=== PATIENT | female | born 1980 | race African-American/Black ===

== ENCOUNTER 2016-10-01 09:21 | Emergency (ER) | payer MEDICAID ==
--- NOTE | 2016-10-01 09:57 | ER Document Report ---
ED ENT - General Chief Complaint: Sore Throat Stated Complaint: SORE THROAT Time seen by provider: 09:50 Mode of Arrival: Ambulatory Information source: Patient Notes: Physical stay home 36-year-old female presents to ED for sore throat, runny nose , and cough since Sunday denies fever . Patient in no acute distress in the ER when examined. She denies any nausea vomiting or diarrhea. She states she has frequent strep throat. 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 TRAVEL OUTSIDE OF THE [place] IN LAST 30 DAYS: No - HPI Onset/Duration: Gradual Quality of pain: Sharp Severity: Moderate Pain Level: 3 Context: Recent Illness Location of pain: Nose, Sinus, Throat Associated symptoms: Cough, Nose bleed, Sinus drainage, Sore throat. denies: Fever Similar symptoms previously: Yes Recently seen / treated by doctor: No - Related Data Allergies/Adverse Reactions: No Known Allergies Allergy (Verified 10/01/16 09:33) Past Medical History - General Information source: Patient - Social History Smoking Status: Current Every Day Smoker Cigarette use (# per day): Yes Chew tobacco use (# tins/day): No - half pack Smoking Education Provided: Yes Frequency of alcohol use: Occasional Drug Abuse: None Occupation: cashiers supervisor Lives with: Family - 3 children Family History: DM, Hypertension Patient has suicidal ideation: No Patient has homicidal ideation: No - Past Medical History Cardiac Medical History: Reports: None Pulmonary Medical History: Reports: None EENT Medical History: Reports: None, Throat - Strep Neurological Medical History: Reports: None Endocrine Medical History: Reports: None Renal/ Medical History: Reports: Hx Kidney Stones - Dx'ed with x-ray, Hx Ovarian Cysts - Right oopherectomy 2009 Malignancy Medical History: Reports: None GI Medical History: Reports: Hx Gastroesophageal Reflux Disease - during only Musculoskeltal Medical History: Reports Hx Musculoskeletal Trauma Psychiatric Medical History: Reports: Hx Depression - no meds Traumatic Medical History: Reports: Hx Fractures - finger as child Infectious Medical History: Reports: None Past Surgical History: Reports: Hx Section - 2001, Hx Gynecologic Surgery - ovary removed - Immunizations Immunizations up to date: Yes Hx Diphtheria, Pertussis, Tetanus Vaccination: Yes - 08/2013 Review of Systems - Review of Systems Constitutional: Recent illness. denies: Fever EENT: Nose discharge, Sinus discharge, Throat pain Cardiovascular: No symptoms reported Respiratory: Cough Gastrointestinal: No symptoms reported Genitourinary: No symptoms reported Female Genitourinary: No symptoms reported Musculoskeletal: No symptoms reported Skin: No symptoms reported Hematologic/Lymphatic: No symptoms reported Neurological/Psychological: No symptoms reported -: Yes All other systems reviewed and negative Physical Exam - Vital signs Vitals: Temp Pulse Resp BP Pulse Ox 98.4 F 84 16 118/71 99 10/01/16 09:30 10/01/16 09:30 10/01/16 09:30 10/01/16 09:30 10/01/16 09:30 Interpretation: Normal - General General appearance: Appears well, Alert - HEENT Head: Normocephalic, Atraumatic Eyes: Normal Pupils: PERRL Ears: Normal External canal: Normal Tympanic membrane: Normal Sinus: Normal Nasal: Purulent discharge, Swelling Mouth/Lips: Normal Mucous membranes: Normal Pharynx: Post nasal drainage Neck: Normal - Respiratory Respiratory status: No respiratory distress Chest status: Nontender Breath sounds: Nonproductive cough Chest palpation: Normal - Cardiovascular Rhythm: Regular Heart sounds: Normal auscultation Murmur: No - Abdominal Inspection: Normal Distension: No distension Bowel sounds: Normal Tenderness: Nontender Organomegaly: No organomegaly - Back Back: Normal, Nontender - Extremities General upper extremity: Normal inspection, Nontender, Normal color, Normal ROM , Normal temperature General lower extremity: Normal inspection, Nontender, Normal color, Normal ROM , Normal temperature, Normal weight bearing. No: Rory's sign - Neurological Neuro grossly intact: Yes Cognition: Normal Orientation: AAOx4 [place] Coma Scale Eye Opening: Spontaneous Milagros Coma Scale Verbal: Oriented Milagros Coma Scale Motor: Obeys Commands Hensley Coma Scale Total: 15 Speech: Normal Motor strength normal: LUE, RUE, LLE, RLE Sensory: Normal - Psychological Associated symptoms: Normal affect, Normal mood - Skin Skin Temperature: Warm Skin Moisture: Dry Skin Color: Normal Course - Re-evaluation Re-evalutation: 10/01/16 10:42 Strep [place] negative assessment consistent with upper respiratory infection patient discharged home to follow-up with her primary doctor. - Vital Signs Vital signs: Temp Pulse Resp BP Pulse Ox 98.4 F 84 16 118/71 99 10/01/16 09:33 10/01/16 09:33 10/01/16 09:33 10/01/16 09:33 10/01/16 09:33 Discharge - Discharge Clinical Impression: Sore throat (viral) URI (upper respiratory infection) Qualifiers: URI type: unspecified URI Qualified Code(s): J06.9 - Acute upper respiratory infection, unspecified Condition: Stable Disposition: HOME, SELF-CARE Instructions: Family Physicians / Practices Additional Instructions: UPPER RESPIRATORY ILLNESS: You have a viral infection of the respiratory passages -- a "cold." This common infection causes nasal congestion, drainage, and often sore throat and cough. It is highly contagious. The disease usually lasts about 10 to 14 days. There is no "cure" for the viral infection -- it must run its course. If there is a complication, such as bacterial infection in the nose, sinuses, middle ear, or bronchial tubes, antibiotics may be required. The antibiotics won't affect the virus. Drink plenty of fluids. A humidifier may help. An expectorant medication or decongestant may make you more comfortable. Use acetaminophen or ibuprofen for fever or aches. See the doctor if fever persists over two days, if there is any significant worsening of your symptoms, or if you simply fail to improve as expected. DECONGESTANT MEDICATION: A decongestant medicine has been suggested. Often this medicine is combined in the same tablet with an antihistamine or expectorant. This type of medicine is helpful in treating a bad cold or sinus condition, as well as in treatment of the nasal congestion of hay fever. It is not of much benefit for lung infections. Decongestant medicines are related to stimulants. They can cause an increase in blood pressure and heart rate. Persons with heart disease and high blood pressure should not take decongestants without discussing this with the physician. If you develop palpitations, chest pain, headache, or tremors, stop the medicine and consult your physician. COUGH-SUPPRESSANT & EXPECTORANT MEDICATION: You are to use a cough medication as needed for relief of symptoms. This medicine is a combination of an expectorant (to make the mucous thinner and more easily "coughed up") and a cough suppressant (to reduce the frequency of coughing). The cough-suppressant medicine is related to narcotics. You may experience mild nausea and sleepiness. Some patients who are very sensitive to narcotics may have stomach pain from this medicine. Taking the medicine with food reduces these side effects. Do not drive or work with machinery until you know how this medicine affects you. The expectorant should have no side effects. Iodine-containing expectorants (such as organidin) should not be taken by persons with active thyroid disease unless approved by your doctor. Call the doctor if you develop shortness of breath, hives, rash, itching, lightheadedness, or severe nausea and vomiting. USE OF ACETAMINOPHEN (Tylenol): Acetaminophen may be taken for pain relief or fever control. It's much safer than aspirin, offering a wider range of "safe" dosages. It is safe during . Some brand names are Tylenol, Panadol, Datril, Anacin 3, Tempra, and Liquiprin. Acetaminophen can be repeated every four hours. The following are maximum recommended dosages: >89 pounds or adults 650 mg to 900 mg Acetaminophen can be repeated every four hours. Maximum dose not to exceed 4000 mg a day. FOLLOW-UP CARE: If you have been referred to a physician for follow-up care, call the physician s office for an appointment as you were instructed or within the next two days. If you experience worsening or a significant change in your symptoms, notify the physician immediately or return to the Emergency Department at any time for re-evaluation. Forms: Return to Work
[2016-10-01 10:56] VITALS: BP 113/71
== END 2016-10-01 10:45 | disposition home or self-care (01) ==
LOC: ER 09:21
DX: J02.8 Acute pharyngitis due to other specified organisms (principal); B97.89 Other viral agents as the cause of diseases classified elsewhere; J06.9 Acute upper respiratory infection, unspecified; R05 Cough; R04.0 Epistaxis; F17.210 Nicotine dependence, cigarettes, uncomplicated; Z20.818 Contact with and (suspected) exposure to other bacterial communicable diseases; Z71.6 Tobacco abuse counseling
CPT/HCPCS: 87070; 87880; 99283

== ENCOUNTER 2016-12-07 17:50 | Emergency (ER) | payer SELFPAY ==
[2016-12-07 18:11] VITALS: BP 120/75
--- NOTE | 2016-12-07 18:21 | ER Document Report ---
ED Neck/Back Problem - General Mode of Arrival: Ambulatory Information source: Patient TRAVEL OUTSIDE OF THE [place] IN LAST 30 DAYS: No - HPI Patient complains to provider of: Pain, Lower back - right Onset: This afternoon Context: Other - see notes above Associated symptoms: Other - see notes above Exacerbated by: Movement of trunk - General Chief Complaint: Abdominal Pain Stated Complaint: RIGHT SIDE PAIN Time Seen by Provider: 12/07/16 18:14 Notes: 36-year-old female presents to the ED complaining of right lower back that started earlier this afternoon after she stood up from cleaning. Patient reports that she has increasing pain with movement. Patient reports that she does not remember if she felt anything pull from her right side. (MENA BHATIA) - Related Data Allergies/Adverse Reactions: No Known Allergies Allergy (Verified 12/07/16 18:00) Past Medical History - General Information source: Patient - Social History Smoking Status: Current Every Day Smoker Chew tobacco use (# tins/day): No Frequency of alcohol use: Rare Drug Abuse: None Family History: DM, Hypertension Patient has suicidal ideation: No Patient has homicidal ideation: No Renal/ Medical History: Reports: Hx Kidney Stones - Dx'ed with x-ray, Hx Ovarian Cysts - Right oopherectomy 2009 GI Medical History: Reports: Hx Gastroesophageal Reflux Disease - during only Musculoskeltal Medical History: Reports Hx Musculoskeletal Trauma Psychiatric Medical History: Reports: Hx Depression - no meds Traumatic Medical History: Reports: Hx Fractures - finger as child Infectious Medical History: Denies: Hx HIV Past Surgical History: Reports: Hx Breast Surgery - reduction, Hx Section - x3, Hx Gynecologic Surgery - ovary removed - Immunizations Immunizations up to date: Yes Hx Diphtheria, Pertussis, Tetanus Vaccination: Yes - 08/2013 Review of Systems - Review of Systems Constitutional: No symptoms reported EENT: No symptoms reported Cardiovascular: No symptoms reported Respiratory: No symptoms reported Gastrointestinal: No symptoms reported Genitourinary: No symptoms reported Female Genitourinary: No symptoms reported Musculoskeletal: See HPI, Back pain - right lower Skin: No symptoms reported Hematologic/Lymphatic: No symptoms reported Neurological/Psychological: No symptoms reported -: Yes All other systems reviewed and negative Physical Exam - General General appearance: Alert In distress: None - HEENT Head: Normocephalic, Atraumatic Eyes: Normal Extraocular movements intact: Yes Pupils: PERRL - Respiratory Respiratory status: No respiratory distress - Abdominal Inspection: Normal - Back Back: Tender - right SI is tender to palpate - Extremities General upper extremity: Normal inspection, Normal ROM General lower extremity: Normal inspection, Normal ROM - Neurological Neuro grossly intact: Yes Cognition: Normal Orientation: AAOx4 [place] Coma Scale Eye Opening: Spontaneous [place] Coma Scale Verbal: Oriented Milagros Coma Scale Motor: Obeys Commands Milagros Coma Scale Total: 15 Speech: Normal - Psychological Associated symptoms: Normal affect, Normal mood - Skin Skin Temperature: Warm Skin Moisture: Dry Skin Color: Normal Course - Re-evaluation Re-evalutation: 12/07/16 18:37 Patient comes in with back pain. Patient was bending over to clean, sit up and had pain in her right back. No evidence for stone or UTI. Patient has tenderness to palpation and pain with movement. Symptoms are consistent with sacroiliac strain. Patient appears well otherwise and is neurovascularly intact. Full strength and range of motion. She will be discharged home with a muscle relaxant. Patient does not need a work note as she is also Sunday. Stable for discharge. Return if any worsening or concerning symptoms. Understands and agrees with plan. (YAIMA FLORES) - Vital Signs Vital signs: Temp Pulse Resp BP Pulse Ox 97.9 F 56 L 22 H 120/75 100 12/07/16 18:02 12/07/16 18:02 12/07/16 18:02 12/07/16 18:02 12/07/16 18:02 Discharge - Discharge Clinical Impression: Sacroiliac strain Qualifiers: Encounter type: initial encounter Qualified Code(s): S39.012A - Strain of muscle, fascia and tendon of lower back, initial encounter Condition: Stable Disposition: HOME, SELF-CARE Instructions: Muscle Strain ([facility]), Muscle Relaxers ([facility]) Prescriptions: Cyclobenzaprine HCl [Flexeril 10 mg Tablet] 10 mg PO TIDP PRN #15 tab PRN Reason: Scribe Attestation: 12/07/16 18:38 I personally performed the services described in the documentation, reviewed and edited the documentation which was dictated to the scribe in my presence, and it accurately records my words and actions. (YAIMA FLORES) Scribe Documentation - Scribe Written by Scribe:: Henrietta Ritchie, 12/07/2016 1829 acting as scribe for :: Faye
[2016-12-07] MEDS ORDERED: HYDROCODONE/ACETAMINOPHEN 5-325 MG 6 TAB/DSPK PO PRN (18:25)
== END 2016-12-07 18:37 | disposition home or self-care (01) ==
LOC: ER 17:50
DX: S39.012A Strain of muscle, fascia and tendon of lower back, initial encounter (principal); X58.XXXA Exposure to other specified factors, initial encounter; F17.200 Nicotine dependence, unspecified, uncomplicated
CPT/HCPCS: 99283

== ENCOUNTER 2017-08-06 18:00 | Emergency (ER) | payer MEDICAID, OTHER ==
[2017-08-06] MEDS ORDERED: IBUPROFEN 800 MG TABLET PO ONE (20:04)
[2017-08-06] MEDS ORDERED: ONDANSETRON 4 MG TAB.RAPDIS PO ONE (20:04)
--- NOTE | 2017-08-06 20:04 | ER Document Report ---
HPI - HPI Pain Level: 4 Context: Patient is a 36-year-old female presents emergency department flulike symptoms that started on Sunday. She admits to body aches, headache, nausea, sinus congestion, cough. She denies any neck pain, dizziness, confusion, vomiting, abdominal pain, diarrhea or constipation. She states that she did not get a flu vaccine this year. Otherwise admits to normal oral intake and normal urinary output and bowel movements. Denies any other past medical history. Admits to previous right ovarian torsion , right orchiectomy, current smoker - REPRODUCTIVE Reproductive: DENIES: : Past Medical History - Social History Smoking Status: Current Every Day Smoker Family History: DM, Hypertension Renal/ Medical History: Reports: Hx Kidney Stones - Dx'ed with x-ray, Hx Ovarian Cysts - Right oopherectomy 2008. Denies: Hx Peritoneal Dialysis, Hx Pelvic Inflammatory Disease Malignancy Medical History: Denies: Hx Breast Cancer, Hx Cervical Cancer, Hx Ovarian Cancer GI Medical History: Reports: Hx Gastroesophageal Reflux Disease - during only. Denies: Hx Hiatal Hernia, Hx Ulcer Musculoskeltal Medical History: Reports Hx Musculoskeletal Trauma Psychiatric Medical History: Reports: Hx Depression - no meds Denies: Hx Bipolar Disorder, Hx Post Traumatic Stress Disorder, Hx Schizophrenia Traumatic Medical History: Reports: Hx Fractures - finger as child Infectious Medical History: Denies: Hx HIV Past Surgical History: Reports: Hx Breast Surgery - reduction, Hx Section - x3, Hx Gynecologic Surgery - ovary removed - Immunizations Immunizations up to date: Yes Hx Diphtheria, Pertussis, Tetanus Vaccination: Yes - 08/2013 Vertical Provider Document - CONSTITUTIONAL Agree With Documented VS: Yes Notes: PHYSICAL EXAM GENERAL: Alert, interacts well. HEAD: Normocephalic, atraumatic. EYES: Pupils equal, round, and reactive to light. Extraocular movements intact. ENT: Oral mucosa moist, tongue midline. NECK: Full range of motion. Supple. Trachea midline. LUNGS: Clear to auscultation bilaterally, no wheezes, rales, or rhonchi. No respiratory distress. HEART: Regular rate and rhythm. No murmurs, gallops, or rubs. ABDOMEN: Soft, nondistended, nontender. No guarding, rebound, or rigidity.. Bowel sounds present in all 4 quadrants. EXTREMITIES: Moves all 4 extremities spontaneously. No edema, radial and dorsalis pedis pulses 2/4 bilaterally. No cyanosis. NEUROLOGICAL: Alert and oriented x4. Normal speech. PSYCH: Normal affect, normal mood. SKIN: Warm, dry, normal turgor. No rashes or lesions noted. - INFECTION CONTROL TRAVEL OUTSIDE OF THE [place] IN LAST 30 DAYS: No - RESPIRATORY O2 Sat by Pulse Oximetry: 98 Course - Re-evaluation Re-evalutation: 08/06/17 20:02 Patient is a 36-year-old female who is hemodynamically stable, no acute distress and afebrile. Patient presents with cough, nausea, body aches, and low grad e fever at home consistent with a diagnosis of influenza. Patient is overall well in appearance, in no acute distress. Lung sounds clear. Able to tolerate oral intake without difficulty here in the emergency department. After risks and benefits conversation with the patient regarding the use of Tamiflu, they have elected to use supportive care without Tamiflu based on concerns about lack of efficacy as well as the side effect profile. At this time will discharge with return precautions and follow-up recommendations. Verbal discharge instructions given a the bedside and opportunity for questions given. Medication warnings reviewed. Patient is in agreement with this plan and has verbalized understanding of return precautions and the need for primary care follow-up in the next 24-72 hours. - Vital Signs Vital signs: Temp Pulse Resp BP Pulse Ox 98.6 F 56 L 16 117/65 98 08/06/17 19:00 08/06/17 19:00 08/06/17 19:00 08/06/17 19:00 08/06/17 19:00 Discharge - Discharge Clinical Impression: Flu-like symptoms Condition: Good Disposition: HOME, SELF-CARE Additional Instructions: You have symptoms consistent with influenza. There is no treatment that is effective for this diagnosis other than supportive care at home. This includes drinking plenty of fluids, using Tylenol or ibuprofen as needed for fever and discomfort, and Zofran as needed for nausea and vomiting. Please follow closely with you primary care physician the next 1-2 days regarding this diagnosis. Return to the emergency department immediately if you began to have persistent vomiting prevents you from being able to keep fluids down for more than 12 hours, you pass out, you began having difficulty breathing, you become confused, or you have any other symptoms that are worrisome to you. Prescriptions: Ondansetron [Zofran Odt 4 mg Tablet] 1 - 2 tab PO Q4H PRN #15 tab.rapdis PRN Reason: For Nausea/Vomiting Forms: Return to Work Referrals: [facility] [NO LOCAL MD] - Follow up in 1 week
[2017-08-06 22:02] VITALS: BP 112/67
== END 2017-08-06 21:42 | disposition home or self-care (01) ==
LOC: ER 18:00
DX: M79.1 Myalgia (principal); R51 Headache; R11.0 Nausea; R09.81 Nasal congestion; R05 Cough; F17.200 Nicotine dependence, unspecified, uncomplicated
CPT/HCPCS: 99283; S0119

== ENCOUNTER 2017-11-17 22:30 | Emergency (ER) | payer OTHER ==
[2017-11-17] MEDS ORDERED: KETOROLAC TROMETHAMINE INJ/PF 30 MG/1 ML SDV IM ONE (23:32)
--- NOTE | 2017-11-17 23:48 | ER Document Report ---
ED General - General Chief Complaint: Back Pain Stated Complaint: LOW BACK PAIN Time Seen by Provider: 11/17/17 23:25 Notes: Patient is a 37-year-old female who presents with complaint of back spasm over the left lower back. She has a history of some recurrent left lower back pain says the last 3 days every time she moves or rolls or twists it hurts. She saw her primary care doctor who did what sounds to be trigger point injections. She said that did not really help. She denies any weakness or numbness into the legs. No new trauma. No loss of bowel control. No difficulty urinating. No other complaints at this time. Heating pad at home does help. TRAVEL OUTSIDE OF THE [place] IN LAST 30 DAYS: No - Related Data Allergies/Adverse Reactions: No Known Allergies Allergy (Verified 08/06/17 18:39) Past Medical History - Social History Smoking Status: Unknown if Ever Smoked Frequency of alcohol use: None Drug Abuse: None Family History: DM, Hypertension Patient has suicidal ideation: No Patient has homicidal ideation: No Renal/ Medical History: Reports: Hx Kidney Stones - Dx'ed with x-ray, Hx Ovarian Cysts - Right oopherectomy 2008. Denies: Hx Peritoneal Dialysis, Hx Pelvic Inflammatory Disease Malignancy Medical History: Denies: Hx Breast Cancer, Hx Cervical Cancer, Hx Ovarian Cancer GI Medical History: Reports: Hx Gastroesophageal Reflux Disease - during only. Denies: Hx Hiatal Hernia, Hx Ulcer Musculoskeltal Medical History: Reports Hx Musculoskeletal Trauma Psychiatric Medical History: Reports: Hx Depression - no meds Denies: Hx Bipolar Disorder, Hx Post Traumatic Stress Disorder, Hx Schizophrenia Traumatic Medical History: Reports: Hx Fractures - finger as child Infectious Medical History: Denies: Hx HIV Past Surgical History: Reports: Hx Breast Surgery - reduction, Hx Section - x3, Hx Gynecologic Surgery - ovary removed - Immunizations Immunizations up to date: Yes Hx Diphtheria, Pertussis, Tetanus Vaccination: Yes - 08/2013 Review of Systems - Review of Systems Notes: My Normal Review Basic REVIEW OF SYSTEMS: CONSTITUTIONAL : Denies fever, chills, or sweats. Denies recent illness. GASTROINTESTINAL: Denies abdominal pain. Denies nausea, vomiting, or diarrhea. Denies constipation. Last BM: GENITOURINARY: Denies difficulty urinating, painful urination, burning, frequency, or blood in urine. MUSCULOSKELETAL: Left lower back pain SKIN: Denies rash or skin lesions. NEUROLOGICAL: Denies altered mental status or loss of consciousness. Denies headache. Denies weakness or paralysis or loss of use of either side. Denies problems with gait or speech. Denies sensory or motor loss. ALL OTHER SYSTEMS REVIEWED AND NEGATIVE. Physical Exam - Vital signs Vitals: Temp Pulse Resp BP Pulse Ox 98.7 F 71 16 126/70 H 96 11/17/17 22:37 11/17/17 22:37 11/17/17 22:37 11/17/17 22:37 11/17/17 22:37 - Notes Notes: General Appearance: Well nourished, alert, cooperative, no acute distress, mild obvious discomfort. Well appearing. Vitals: reviewed, See vital signs table. Eyes: PERRL, EOMI, Conjuctiva clear Back: Pain to palpation over the left lumbar paraspinal musculature. Patient is able to roll back and forth in bed and has good range of motion of her back despite having the pain in the left lower back. There is no redness or swelling over the skin. Extremities: strength 5/5 in all extremities, good pulses in all extremities, good strength with plantar dorsiflexion against resistance., no edema. Skin: warm, dry, appropriate color, no rash Neuro: speech clear, oriented x 3, normal affect, responds appropriately to questions. Normal Achilles reflexes. Distal sensation in both feet. Course - Re-evaluation Re-evalutation: 11/17/17 23:57 Patient has what appears to be recurrent left lumbar paraspinal musculature spasm. We will give a shot of Toradol. I will discharge her home with Skelaxin. I informed her to use a heating pad. I will have her take Tylenol and Motrin at home for pain control. Has no signs or symptoms of radiculopathy or cauda equina syndrome. I strongly encouraged her return here immediately if she has worsening pain, fevers, weakness or numbness into the legs, loss of bowel control, or urinary retention. Patient agrees with plan will be discharged home. Dictation of this chart was performed using voice recognition software; therefore, there may be some unintended grammatical errors. - Vital Signs Vital signs: Temp Pulse Resp BP Pulse Ox 98.7 F 71 16 126/70 H 96 11/17/17 22:37 11/17/17 22:37 11/17/17 22:37 11/17/17 22:37 11/17/17 22:37 Discharge - Discharge Clinical Impression: Back pain Qualifiers: Back pain location: low back pain Chronicity: acute Back pain laterality: left Sciatica presence: without sciatica Qualified Code(s): M54.5 - Low back pain Condition: Good Disposition: HOME, SELF-CARE Additional Instructions: Please return to the ER immediately if you develop worsening back pain, fevers, leg weakness or numbness, loss of control of your bowels, inability to urinate, or if you feel that you are worsening. Please take Motrin 600mg every 6 hours with food and Tylenol 500mg every 4 hours. Please take the Skelaxin as needed for back spasm. Skelaxin may make you sleepy so do not drive if you feel sleepy after taking it. Prescriptions: Metaxalone [Skelaxin 800 mg Tablet] 800 mg PO ASDIR PRN #20 tablet PRN Reason: Forms: Return to Work
[2017-11-18 07:56] VITALS: BP 115/72
== END 2017-11-18 00:04 | disposition home or self-care (01) ==
LOC: ER 22:30
DX: M54.5 Low back pain (principal)
CPT/HCPCS: 99283; 96372; J1885

== ENCOUNTER 2018-02-20 21:34 | Emergency (ER) | payer OTHER ==
[2018-02-20 22:21] VITALS: BP 120/73
--- NOTE | 2018-02-20 22:36 | RADIOLOGY REPORT (SQ) ---
EXAM DESCRIPTION: TIBIA FIBULA RIGHT COMPLETED DATE/TIME: 02/20/2018 10:14 pm REASON FOR STUDY: fall COMPARISON: None. NUMBER OF VIEWS: Two views. TECHNIQUE: Two radiographic images acquired of the right tibia and fibula to include the knee and an kle in at least one projection. LIMITATIONS: None. FINDINGS: MINERALIZATION: Normal. BONES: No acute fracture or dislocation. No worrisome bone lesions. SOFT TISSUES: No obvious swelling or foreign body. OTHER: No other significant finding. IMPRESSION: No fracture. TECHNICAL DOCUMENTATION: JOB ID: [id number] [place]-72 2010 [employer]- All Rights Reserved Reading location - IP/workstation name: [email or web address]
[2018-02-20] MEDS ORDERED: DIPH/PERTUSS(ACELL)/TETANUS VAC/PF 0.5 ML SYR (>=10YO) IM ONE (22:52)
[2018-02-20] MEDS ORDERED: HYDROCODONE/ACETAMINOPHEN 5-325 MG (6 TAB/ER DISP) PO PRN (22:52)
--- NOTE | 2018-02-20 22:55 | ER Document Report ---
HPI - HPI Patient complains to provider of: Right leg injury Onset: Just prior to arrival Onset/Duration: Sudden Quality of pain: Sharp Pain Level: 4 Context: Patient states that she fell through a broken floor event. Patient with abrasions to bilateral sides of her right lower leg. Patient denies any other injury. Associated Symptoms: Other - Leg pain Exacerbated by: Standing, Movement, Walking Relieved by: Denies Similar symptoms previously: No Recently seen / treated by doctor: No - ROS ROS below otherwise negative: Yes Systems Reviewed and Negative: Yes All other systems reviewed and negative - NEURO Neurology: DENIES: Weakness - GASTROINTESTINAL Gastrointestinal: DENIES: Nausea, Patient vomiting - REPRODUCTIVE LMP: na Reproductive: DENIES: : - MUSCULOSKELETAL Musculoskeletal: REPORTS: Extremity pain - DERM Skin Problems: Laceration Past Medical History - General Information source: Patient - Social History Smoking Status: Current Every Day Smoker Smoking Education Provided: Yes Frequency of alcohol use: None Drug Abuse: None Occupation: None Lives with: Family Family History: DM, Hypertension Endocrine Medical History: Reports: Hx Diabetes Mellitus Type 2 Renal/ Medical History: Reports: Hx Kidney Stones - Dx'ed with x-ray, Hx Ovarian Cysts - Right oopherectomy 2008. Denies: Hx Peritoneal Dialysis, Hx Pelvic Inflammatory Disease Malignancy Medical History: Denies: Hx Breast Cancer, Hx Cervical Cancer, Hx Ovarian Cancer GI Medical History: Reports: Hx Gastroesophageal Reflux Disease - during only. Denies: Hx Hiatal Hernia, Hx Ulcer Musculoskeletal Medical History: Reports Hx Musculoskeletal Trauma Psychiatric Medical History: Reports: Hx Depression - no meds Denies: Hx Bipolar Disorder, Hx Post Traumatic Stress Disorder, Hx Schizophrenia Traumatic Medical History: Reports: Hx Fractures - finger as child Infectious Medical History: Denies: Hx HIV Past Surgical History: Reports: Hx Breast Surgery - reduction, Hx Section - x3, Hx Gynecologic Surgery - ovary removed - Immunizations Immunizations up to date: Yes Hx Diphtheria, Pertussis, Tetanus Vaccination: Yes - 08/2013 Vertical Provider Document - CONSTITUTIONAL Agree With Documented VS: Yes Exam Limitations: No Limitations General Appearance: WD/WN, No Apparent Distress - INFECTION CONTROL TRAVEL OUTSIDE OF THE [place] IN LAST 30 DAYS: No - HEENT HEENT: Atraumatic, Normocephalic - NECK Neck: Normal Inspection - RESPIRATORY Respiratory: Breath Sounds Normal, No Respiratory Distress - CARDIOVASCULAR Cardiovascular: Regular Rate, Regular Rhythm Pulses: Normal: Dorsalis pedis - MUSCULOSKELETAL/EXTREMETIES Musculoskeletal/Extremeties: MAEW, FROM, Tender - Patient with medial and lateral calf tenderness with overlying linear abrasions - NEURO Level of Consciousness: Awake, Alert, Appropriate Motor/Sensory: No Motor Deficit - DERM Integumentary: Warm, Dry. negative: Abscess Notes: Abrasions to medial and lateral aspects of right lower extremity Course - Vital Signs Vital signs: Temp Pulse Resp BP Pulse Ox 98.3 F 60 120/73 100 02/20/18 22:20 02/20/18 22:20 02/20/18 22:20 02/20/18 22:20 - Diagnostic Test Radiology reviewed: Image reviewed, Reports reviewed Discharge - Discharge Clinical Impression: Abrasion, Muscle pain, fall thru floor vent Condition: Stable Disposition: HOME, SELF-CARE Instructions: Abrasions ([facility]), Dressing Instructions for Open Wounds ([facility]), Oral Narcotic Medication ([facility]) Additional Instructions: Return immediately for any new or worsening symptoms Followup with your primary care provider, call tomorrow to make a followup appointment Prescriptions: Naproxen [Naprosyn 250 Nmg Tablet] 1 tab PO BID #14 tablet Forms: Return to Work Referrals: REMY BOOKER DO [Primary Care Provider] - Follow up as needed [facility] [Provider Group] - Follow up as needed
== END 2018-02-21 00:02 | disposition home or self-care (01) ==
LOC: ER 21:34
DX: S80.811A Abrasion, right lower leg, initial encounter (principal); M79.1 Myalgia; W17.89XA Other fall from one level to another, initial encounter; E11.9 Type 2 diabetes mellitus without complications; Z23 Encounter for immunization; Z87.442 Personal history of urinary calculi
CPT/HCPCS: 90471; 90715; 99283

== ENCOUNTER → 2018-05-29 | Outpatient (CLI) | payer OTHER ==
--- NOTE | 2018-05-29 14:26 | RADIOLOGY REPORT (SQ) ---
EXAM DESCRIPTION: HIPS BILATERAL COMPLETED DATE/TIME: 05/29/2018 1:08 pm REASON FOR STUDY: CHRONIC CATRACHO HIP PAIN no known injury, 1 month of progressive bilateral hip pain COMPARISON: None. NUMBER OF VIEWS: Two views TECHNIQUE: AP pelvis and additional frog-leg view of both hips. LIMITATIONS: None. FINDINGS: MINERALIZATION: Normal. HIPS: No acute fracture or dislocation. No worrisome bone lesions. PELVIS AND SACRUM: No acute fracture or dislocation. No worrisome bone lesions. PUBIS AND ISCHIUM: No acute fracture. LOWER LUMBAR SPINE: No significant findings as visualized. SOFT TISSUES: Midline pelvic IUD OTHER: No other significant finding. IMPRESSION: NEGATIVE STUDY OF THE PELVIS AND HIPS. TECHNICAL DOCUMENTATION: JOB ID: [id number] [employer]- All Rights Reserved Reading location - IP/workstation name: [email or web address]
== END ==
LOC: OD 12:51
PROVIDERS: ATTEND Student in an Organized Health Care Education/Training Program
DX: M25.552 Pain in left hip (principal); M25.551 Pain in right hip
CPT/HCPCS: 73522

== ENCOUNTER 2018-08-22 14:56 | Emergency (ER) | payer OTHER ==
[2018-08-22 15:06] VITALS: BP 126/66
[2018-08-22] MEDS ORDERED: IBUPROFEN 800 MG TABLET PO ONE (15:38)
--- NOTE | 2018-08-22 15:43 | ER Document Report ---
HPI - HPI Time Seen by Provider: 08/22/18 15:32 Pain Level: 3 Notes: Patient is a 38-year-old female with no significant past medical history presents the emergency department complaining of plantar foot pain to her left foot over the last several days. Patient states that it hurts when she takes morning steps. Patient states that she has been told she had plantar fasciitis in the past. Patient states that she is on her feet all the time. Denies drug allergies. The pain does not radiate. No other concerns or complaints. Denies any IV drug abuse history. No other concerns or complaints. No history of gout. Denies any headache, fever, URI, sore throat, chest pain, palpitations, syncope, cough, shortness of breath, wheeze, dyspnea, abdominal pain, nausea/vomiting/diarrhea, urinary retention, dysuria, hematuria, loss of control of bowel or bladder, numbness/tingling, muscle paralysis/weakness, or rash. - ROS Systems Reviewed and Negative: Yes All other systems reviewed and negative - CONSTITUTIONAL Constitutional: DENIES: Fever, Chills - REPRODUCTIVE Reproductive: DENIES: : - MUSCULOSKELETAL Musculoskeletal: REPORTS: Extremity pain - right heel Past Medical History - Social History Smoking Status: Current Every Day Smoker Frequency of alcohol use: None Drug Abuse: None Family History: DM, Hypertension Patient has suicidal ideation: No Patient has homicidal ideation: No Endocrine Medical History: Reports: Hx Diabetes Mellitus Type 2 Renal/ Medical History: Reports: Hx Kidney Stones - Dx'ed with x-ray, Hx Ovarian Cysts - Right oopherectomy 2008. Denies: Hx Peritoneal Dialysis, Hx Pelvic Inflammatory Disease Malignancy Medical History: Denies: Hx Breast Cancer, Hx Cervical Cancer, Hx Ovarian Cancer GI Medical History: Reports: Hx Gastroesophageal Reflux Disease - during pregnan cy only. Denies: Hx Hiatal Hernia, Hx Ulcer Musculoskeletal Medical History: Reports Hx Musculoskeletal Trauma Psychiatric Medical History: Reports: Hx Depression - no meds Denies: Hx Bipolar Disorder, Hx Post Traumatic Stress Disorder, Hx Schizophrenia Traumatic Medical History: Reports: Hx Fractures - finger as child Infectious Medical History: Denies: Hx HIV Past Surgical History: Reports: Hx Breast Surgery - reduction, Hx Section - x3, Hx Gynecologic Surgery - ovary removed - Immunizations Immunizations up to date: Yes Hx Diphtheria, Pertussis, Tetanus Vaccination: Yes - 08/2013 Vertical Provider Document - CONSTITUTIONAL Agree With Documented VS: Yes Notes: PHYSICAL EXAMINATION: GENERAL: Well-appearing, well-nourished and in no acute distress. LUNGS: Breath sounds clear to auscultation bilaterally and equal. No wheezes rales or rhonchi. HEART: Regular rate and rhythm without murmurs, rubs, gallops. Musculoskeletal: Lt foot/ankle: FROM to passive/active. Strength 5+/5. N/V intact distal. + tenderness to the plantar foot. No bony tenderness of the foot. Achilles intact. Extremities: No cyanosis, clubbing, or edema b/l. Peripheral pulses 2+. Capillary refill less than 3 seconds. NEUROLOGICAL: Normal speech, normal gait. Normal sensory, motor exams PSYCH: Normal mood, normal affect. SKIN: Warm, Dry, normal turgor, no rashes or lesions noted. - INFECTION CONTROL TRAVEL OUTSIDE OF THE [place] IN LAST 30 DAYS: No Course - Re-evaluation Re-evalutation: 08/22/18 15:41 Patient is an afebrile, well-hydrated, 38-year-old female who presents to the ED with left foot pain which I suspect to be plantar fasciitis. Vitals are acceptable without any significant tachycardia, tachypnea, or hypoxia. PE is otherwise unremarkable for any neurovascular compromise, obvious tendon/ligament rupture, obvious fracture/dislocation, septic joint. Motrin given p.o. Patient is nontoxic-appearing. Patient is able to ambulate and weight-bear. No other labs or imaging warranted at this time based on H&P. Stretches reviewed. Conservative measures otherwise for symptoms. Recheck with your PCM in 3-5 days. Consider consult orthopedics. Return to the ED with any worsenin g/concerning symptoms otherwise as reviewed in discharge. Patient is in agreement. - Vital Signs Vital signs: Temp Pulse Resp BP Pulse Ox 98.1 F 67 16 126/66 H 99 08/22/18 15:04 08/22/18 15:04 08/22/18 15:04 08/22/18 15:04 08/22/18 15:04 Discharge - Discharge Clinical Impression: Left foot pain, Plantar fasciitis Condition: Stable Disposition: HOME, SELF-CARE Instructions: Plantar Fasciitis or Heel Spur ([facility]) Additional Instructions: Rest, Ice, Compression, Elevation Tylenol/ibuprofen as needed Light stretches daily Strength exercises as able Moist heat and massage may help F/u with your PCP in 3-5 days for a recheck Consider consult(s) with podiatry/physical therapy for ongoing/worsening symptoms Return to the ED with any worsening symptoms and/or development of fever, headache, chest pain, palpitations, syncope, shortness of breath, trouble breathing, abdominal pain, n/v/d, muscle weakness/paralysis, numbness/tingling, swelling, redness, or other worsening symptoms that are concerning to you. Forms: Elevated Blood Pressure, Smoking Cessation Education Referrals: REMY BOOKER DO [Primary Care Provider] - Follow up as needed DAI SANCHEZ DPM [ACTIVE STAFF] - Follow up as needed
== END 2018-08-22 15:48 | disposition home or self-care (01) ==
LOC: ER 14:56
DX: M72.2 Plantar fascial fibromatosis (principal); M79.672 Pain in left foot; F17.200 Nicotine dependence, unspecified, uncomplicated; E11.9 Type 2 diabetes mellitus without complications; Z87.442 Personal history of urinary calculi
CPT/HCPCS: 99283

== ENCOUNTER 2018-12-09 14:14 | Emergency (ER) | payer OTHER | END 2018-12-09 17:52 | disposition left against medical advice (07) | LOC: ER 14:14 | DX: Z53.21 Procedure and treatment not carried out due to patient leaving prior to being seen by health care provider (principal) ==

== ENCOUNTER 2018-12-20 13:23 | Emergency (ER) | payer OTHER ==
[2018-12-20] MEDS ORDERED: IPRATROPIUM/ALBUTEROL 0.5-2.5 MG/3 ML AMPUL NEB ONE (14:33)
[2018-12-20 14:54] LABS: BACTERIA (WET MOUNT) 3+ BACTERIA SEEN; EPITHELIALS (WET MOUNT) 3+ EPITHELIALS SEEN; RBCS (WET MOUNT) RARE RBCS SEEN; T.VAGINALIS (WET MOUNT) NO TRICHOMONAS SEEN; WBCS (WET MOUNT) 2+ WBCS SEEN; YEAST (WET MOUNT) NO YEAST SEEN
[2018-12-20 15:02] LABS: APPEARANCE,URINE SLIGHTLY-CLOUDY; BILIRUBIN,URINE NEGATIVE (NEGATIVE); COLOR,URINE YELLOW; GLUCOSE, URINE NEGATIVE (NEGATIVE); KETONES,URINE NEGATIVE (NEGATIVE); LEUKOCYTE ESTERASE,URINE NEGATIVE (NEGATIVE); NITRITE,URINE NEGATIVE (NEGATIVE); PROTEIN,URINE NEGATIVE (NEGATIVE); URINE SPECIFIC GRAVITY 1.015; UROBILINOGEN,URINE NEGATIVE mg/dL (<2.0)
--- NOTE | 2018-12-20 15:03 | RADIOLOGY REPORT (SQ) ---
EXAM DESCRIPTION: CHEST 2 VIEWS COMPLETED DATE/TIME: 12/20/2018 2:54 pm REASON FOR STUDY: cough x10 days COMPARISON: None. EXAM PARAMETERS: NUMBER OF VIEWS: two views TECHNIQUE: Digital Frontal and Lateral radiographic views of the chest acquired. RADIATION DOSE: NA LIMITATIONS: none FINDINGS: LUNGS AND PLEURA: No opacities, masses or pneumothorax. No pleural effusion. MEDIASTINUM AND HILAR STRUCTURES: No masses or contour abnormalities. HEART AND VASCULAR STRUCTURES: Heart normal size. No evidence for failure. BONES: No acute findings. HARDWARE: None in the chest. OTHER: No other significant finding. IMPRESSION: NO ACUTE RADIOGRAPHIC FINDING IN THE CHEST. TECHNICAL DOCUMENTATION: JOB ID: [id number] [place]-72 2010 [employer]- All Rights Reserved Reading location - IP/workstation name: [employer]
[2018-12-20] MEDS ORDERED: METRONIDAZOLE 500 MG TABLET PO ONE (15:14)
--- NOTE | 2018-12-20 15:32 | ER Document Report ---
HPI - HPI Time Seen by Provider: 12/20/18 14:00 Pain Level: 3 Notes: Patient is an otherwise healthy 38-year-old female presented to the emergency department with multiple complaints today. Patient reports urinary frequency but denies dysuria, she also reports abnormal vaginal discharge that has a slight odor. She also reports cough, congestion and sore throat. Patient denies any nausea, vomiting, diarrhea, back pain or abdominal pain. - CONSTITUTIONAL Constitutional: REPORTS: Chills. DENIES: Fever - EENT EENT: REPORTS: Sore Throat. DENIES: Ear Pain - NEURO Neurology: REPORTS: Headache - head congestion, Dizzinesss / Vertigo. DENIES: Vision blurred - CARDIOVASCULAR Cardiovascular: DENIES: Chest pain - RESPIRATORY Respiratory: REPORTS: Coughing. DENIES: Trouble Breathing - REPRODUCTIVE Reproductive: DENIES: : Past Medical History - General Information source: Patient - Social History Smoking Status: Current Every Day Smoker Frequency of alcohol use: None Drug Abuse: None Family History: DM, Hypertension Patient has suicidal ideation: No Patient has homicidal ideation: No Endocrine Medical History: Reports: Hx Diabetes Mellitus Type 2 Renal/ Medical History: Reports: Hx Kidney Stones - Dx'ed with x-ray, Hx Ovarian Cysts - Right oopherectomy 2008. Denies: Hx Peritoneal Dialysis, Hx Pelvic Inflammatory Disease Malignancy Medical History: Denies: Hx Breast Cancer, Hx Cervical Cancer, Hx Ovarian Cancer GI Medical History: Reports: Hx Gastroesophageal Reflux Disease - during only. Denies: Hx Hiatal Hernia, Hx Ulcer Musculoskeletal Medical History: Reports Hx Musculoskeletal Trauma Psychiatric Medical History: Reports: Hx Depression - no meds Denies: Hx Bipolar Disorder, Hx Post Traumatic Stress Disorder, Hx Schizophrenia Traumatic Medical History: Reports: Hx Fractures - finger as child Infectious Medical History: Denies: Hx HIV Past Surgical History: Reports: Hx Breast Surgery - reduction, Hx Section - x3, Hx Gynecologic Surgery - ovary removed - Immunizations Immunizations up to date: Yes Hx Diphtheria, Pertussis, Tetanus Vaccination: Yes - 08/2013 Vertical Provider Document - CONSTITUTIONAL Notes: PHYSICAL EXAMINATION: GENERAL: Well-appearing, well-nourished and in no acute distress. HEAD: Atraumatic, normocephalic. EYES: Pupils equal round and reactive to light, extraocular movements intact, conjunctiva are normal. ENT: Nares patent, oropharynx clear without exudates. Moist mucous membranes. NECK: Normal range of motion, supple without lymphadenopathy LUNGS: Breath sounds clear to auscultation bilaterally and equal. No wheezes rales or rhonchi. HEART: Regular rate and rhythm without murmurs ABDOMEN: Soft, nontender, nondistended abdomen. No guarding, no rebound. No masses appreciated. Female : No CVA tenderness. Musculoskeletal: Normal range of motion, no pitting or edema. No cyanosis. NEUROLOGICAL: Cranial nerves grossly intact. Normal speech, normal gait. Normal sensory, motor exams PSYCH: Normal mood, normal affect. SKIN: Warm, Dry, normal turgor, no rashes or lesions noted. - INFECTION CONTROL TRAVEL OUTSIDE OF THE [place] IN LAST 30 DAYS: No Course - Re-evaluation Re-evalutation: Urinalysis is unremarkable. Wet prep shows 3+ bacteria consistent with bacterial vaginosis. Rapid strep is negative. Patient will be discharged home in stable condition. Patient encouraged to not drink any alcohol while taking the Flagyl. Patient verbalizes understanding and agreement with this plan. - Vital Signs Vital signs: Temp Pulse Resp BP Pulse Ox 98.2 F 67 16 130/71 H 97 12/20/18 13:28 12/20/18 13:28 12/20/18 13:28 12/20/18 13:28 12/20/18 13:28 - Laboratory Laboratory results interpreted by me: 12/20/18 14:38 Urine Blood MODERATE H Discharge - Discharge Clinical Impression: Bacterial vaginosis, Bronchitis Condition: Stable Disposition: HOME, SELF-CARE Additional Instructions: You are being treated in the emergency department today for bacterial vaginosis and bronchitis. Please take medications as prescribed. Drink plenty of fluids. No alcohol while taking the Flagyl for the bacterial vaginosis. Please follow- up with your primary care provider for a recheck in 1 week. Return to the emergency department with any new or worsening symptoms. Prescriptions: Albuterol Sulfate [Proair HFA Inhalation Aerosol 8.5 gm MDI] 2 puff IH Q4H PRN #1 mdi PRN Reason: Metronidazole [Flagyl 500 mg Tablet] 500 mg PO BID #14 tablet Prednisone [Deltasone 20 mg Tablet] 3 tab PO DAILY 5 Days #15 tablet Forms: Return to Work Referrals: REMY BOOKER DO [Primary Care Provider] - Follow up as needed
[2018-12-20 15:38] VITALS: BP 138/73
== END 2018-12-20 15:40 | disposition home or self-care (01) ==
LOC: ER 13:23
DX: N76.0 Acute vaginitis (principal); B96.89 Other specified bacterial agents as the cause of diseases classified elsewhere; J40 Bronchitis, not specified as acute or chronic; F17.200 Nicotine dependence, unspecified, uncomplicated; E11.9 Type 2 diabetes mellitus without complications; Z87.442 Personal history of urinary calculi
CPT/HCPCS: 94640; 99283; 87070; 87210; 87880; 81001; 71046; J7620

== ENCOUNTER 2019-02-20 10:16 | Emergency (ER) | payer OTHER ==
--- NOTE | 2019-02-20 11:41 | ER Document Report ---
ED Medical Screen (RME) - General Chief Complaint: Abdominal Pain Stated Complaint: LOWER ABDOMINAL PAIN, DIZZY Time Seen by Provider: 02/20/19 11:35 Primary Care Provider: KARINA OGDEN PA-C [Primary Care Provider] - Follow up as needed TRAVEL OUTSIDE OF THE [place] IN LAST 30 DAYS: No - HPI Notes: 02/20/19 11:38 30-year-old female presents the ED for complaints of lower pelvic pain that started at 04 100 this morning. Patient states she has sharp stabbing pain that is been consistent since this morning. States pain is 7 out of 10. Worse with walking or movement, better with laying flat. Patient does have a history of ovarian torsion she believes on her right that was removed 2 years ago. PHYSICAL EXAMINATION: Vital signs reviewed. GENERAL: Well-appearing, well-nourished and in no acute distress. HEAD: Atraumatic, normocephalic. NECK: Normal range of motion CV: Heart regular rate and rhythm LUNGS: No respiratory distress ABD: Right lower quadrant abdominal pain, left lower quadrant abdominal pain and abdominal pain on palpation, no cva tenderness MDM: Patient seen and examined for rapid initial assessment. Vital signs reviewed. A comprehensive ED assessment and evaluation of the patient, analysis of test results and completion of the medical decision making process will be conducted by additional ED providers. *Note is created using voice recognition software and may contain spelling, syntax or grammatical errors. - Related Data Allergies/Adverse Reactions: No Known Allergies Allergy (Verified 02/20/19 10:33) Past Medical History Endocrine Medical History: Reports: Hx Diabetes Mellitus Type 2 Renal/ Medical History: Reports: Hx Kidney Stones - Dx'ed with x-ray, Hx Ovarian Cysts - Right oopherectomy 2008. Denies: Hx Peritoneal Dialysis, Hx Pelvic Inflammatory Disease Malignancy Medical History: Denies: Hx Breast Cancer, Hx Cervical Cancer, Hx Ovarian Cancer GI Medical History: Reports: Hx Gastroesophageal Reflux Disease - during only. Denies: Hx Hiatal Hernia, Hx Ulcer Musculoskeltal Medical History: Reports Hx Musculoskeletal Trauma Psychiatric Medical History: Reports: Hx Depression - no meds Denies: Hx Bipolar Disorder, Hx Post Traumatic Stress Disorder, Hx Schizophrenia Traumatic Medical History: Reports: Hx Fractures - finger as child Infectious Medical History: Denies: Hx HIV Past Surgical History: Reports: Hx Breast Surgery - reduction, Hx Section - x3, Hx Gynecologic Surgery - ovary removed - Immunizations Immunizations up to date: Yes Hx Diphtheria, Pertussis, Tetanus Vaccination: Yes - 08/2013 Physical Exam - Vital signs Vitals: Temp Pulse Resp BP Pulse Ox 98.0 F 78 18 124/81 100 02/20/19 10:20 02/20/19 10:20 02/20/19 10:20 02/20/19 10:20 02/20/19 10:20 Course - Vital Signs Vital signs: Temp Pulse Resp BP Pulse Ox 98.0 F 78 18 124/81 100 02/20/19 10:20 02/20/19 10:20 02/20/19 10:20 02/20/19 10:20 02/20/19 10:20 Doctor's Discharge - Discharge Referrals: KARINA OGDEN PA-C [Primary Care Provider] - Follow up as needed
[2019-02-20 11:56] LABS: ABSOLUTE BASOPHILS # (AUTO) 0.1 10^3/uL (0.0-0.2); ABSOLUTE EOSINOPHILS # (AUTO) 0.1 10^3/uL (0.0-0.6); ABSOLUTE LYMPHOCYTES (AUTO) 2.7 10^3/uL (0.5-4.7); ABSOLUTE MONOCYTES (AUTO) 0.6 10^3/uL (0.1-1.4); ABSOLUTE NEUT (AUTO) 4.2 10^3/uL (1.7-8.2); BASOPHILS % (AUTO) 0.8 % (0-2); EOSINOPHILS % (AUTO) 1.6 % (0-6); HEMATOCRIT 40.7 % (36.0-47.0); HEMOGLOBIN 13.9 g/dL (12.0-15.5); LYMPHOCYTES % (AUTO) 34.9 % (13-45); MEAN CORPUSCULAR HEMOGLOBIN 29.8 pg (27.0-33.4); MEAN CORPUSCULAR HGB CONC 34.1 g/dL (32.0-36.0); MEAN CORPUSCULAR VOLUME 87 fl (80-97); MONOCYTES % (AUTO) 7.9 % (3-13); PLATELET COUNT 185 10^3/uL (150-450); RED BLOOD COUNT 4.67 10^6/uL (3.72-5.28); RED CELL DISTRIBUTION WIDTH 14.3 % (11.5-14.0); SEGMENTED NEUTROPHILS % (AUTO) 54.8 % (42-78); TOTAL CELLS COUNTED % (AUTO) 100 %; WHITE BLOOD COUNT 7.6 10^3/uL (4.0-10.5)
[2019-02-20 12:01] LABS: APPEARANCE,URINE CLEAR; BILIRUBIN,URINE NEGATIVE (NEGATIVE); COLOR,URINE STRAW; GLUCOSE, URINE NEGATIVE (NEGATIVE); KETONES,URINE NEGATIVE (NEGATIVE); LEUKOCYTE ESTERASE,URINE NEGATIVE (NEGATIVE); NITRITE,URINE NEGATIVE (NEGATIVE); PROTEIN,URINE NEGATIVE (NEGATIVE); URINE SPECIFIC GRAVITY 1.002; UROBILINOGEN,URINE NEGATIVE mg/dL (<2.0)
[2019-02-20 12:28] LABS: ALBUMIN 4.4 g/dL (3.5-5.0); ALKALINE PHOSPHATASE 46 U/L (38-126); ANION GAP 8 (5-19); ASPARTATE AMINO TRANSFERASE 23 U/L (14-36); BILIRUBIN,DIRECT 0.2 mg/dL (0.0-0.4); BILIRUBIN,TOTAL 0.2 mg/dL (0.2-1.3); BLOOD UREA NITROGEN 11 mg/dL (7-20); CALCIUM 9.8 mg/dL (8.4-10.2); CARBON DIOXIDE 28 mmol/L (22-30); CHLORIDE 103 mmol/L (98-107); GLUCOSE 91 mg/dL (75-110); POTASSIUM 3.9 mmol/L (3.6-5.0)
[2019-02-20] MEDS ORDERED: HYDROCODONE/ACETAMINOPHEN 5-325 MG TABLET PO ONE (13:56)
--- NOTE | 2019-02-20 14:16 | ER Document Report ---
ED GI/ - General Chief Complaint: Abdominal Pain Stated Complaint: LOWER ABDOMINAL PAIN, DIZZY Time Seen by Provider: 02/20/19 11:35 Primary Care Provider: [facility] [Provider Group] - Follow up as needed KARINA OGDEN PA-C [Primary Care Provider] - Follow up as needed Information source: Patient Notes: Patient is a 38-year-old female who presents to the emergency department with a chief complaint of abdominal pain. She states that she has had her symptoms since 4:00 this morning. It is in her mid lower abdomen. Denies any dysuria or hematuria. She had a right oophorectomy 10 years ago. She has had C-sections in the past. Denies any radiation of the pain. She has had some nausea. No vomiting. Denies any vaginal discharge or foul odors. States her menstrual cycle was normal this cycle. TRAVEL OUTSIDE OF THE [place] IN LAST 30 DAYS: No - Related Data Allergies/Adverse Reactions: No Known Allergies Allergy (Verified 02/20/19 10:33) Past Medical History - Social History Smoking Status: Current Every Day Smoker Family History: DM, Hypertension Patient has suicidal ideation: No Patient has homicidal ideation: No Endocrine Medical History: Reports: Hx Diabetes Mellitus Type 2 Renal/ Medical History: Reports: Hx Kidney Stones - Dx'ed with x-ray, Hx Ovarian Cysts - Right oopherectomy 2008. Denies: Hx Peritoneal Dialysis, Hx Pelvic Inflammatory Disease Malignancy Medical History: Denies: Hx Breast Cancer, Hx Cervical Cancer, Hx Ovarian Cancer GI Medical History: Reports: Hx Gastroesophageal Reflux Disease - during only. Denies: Hx Hiatal Hernia, Hx Ulcer Musculoskeletal Medical History: Reports Hx Musculoskeletal Trauma Psychiatric Medical History: Reports: Hx Depression - no meds Denies: Hx Bipolar Disorder, Hx Post Traumatic Stress Disorder, Hx Schizophrenia Traumatic Medical History: Reports: Hx Fractures - finger as child Infectious Medical History: Denies: Hx HIV Past Surgical History: Reports: Hx Breast Surgery - reduction, Hx Section - x3, Hx Gynecologic Surgery - ovary removed - Immunizations Immunizations up to date: Yes Hx Diphtheria, Pertussis, Tetanus Vaccination: Yes - 08/2013 Review of Systems - Review of Systems Notes: REVIEW OF SYSTEMS: CONSTITUTIONAL : Denies recent illness. Denies recent unintentional weight loss. Denies fever, chills, or sweats. EENT: Denies eye, ear, throat, or mouth pain, discharge, or symptoms. Denies nasal or sinus congestion. CARDIOVASCULAR: Denies chest pain. RESPIRATORY: Denies shortness of breath, cough, congestion, difficulty breathing, or wheezing. GASTROINTESTINAL: See HPI. GENITOURINARY: Denies difficulty urinating, burning, blood in urine, urgency or frequency. FEMALE GENITOURINARY: See HPI. MUSCULOSKELETAL: Denies neck and back pain. Denies joint pain or swelling. SKIN: Denies rash, itchiness, or lesions HEMATOLOGIC : Denies easy bruising or bleeding. LYMPHATIC: Denies swollen, painful, enlarged glands. NEUROLOGICAL: Denies no numbness or tingling denies weakness. Denies headache. Denies altered mental status. Denies alteration in speech. PSYCHIATRIC: Denies stress, anxiety, alteration in sleep patterns, or depression. All other systems reviewed and negative. Physical Exam - Vital signs Vitals: Temp Pulse Resp BP Pulse Ox 98.0 F 78 18 124/81 100 02/20/19 10:20 02/20/19 10:20 02/20/19 10:20 02/20/19 10:20 02/20/19 10:20 - Notes Notes: PHYSICAL EXAMINATION: GENERAL: Appears well, healthy, well-nourished, no acute distress. HEAD: Normocephalic, atraumatic. EYES: PERRL, conjunctiva normal, all extraocular movements intact, sclera nonicteric ENT: Moist mucous membranes. NECK: Supple, no noticeable swelling, redness, rash. Normal range of motion. LUNGS: Equal breath sounds bilaterally and clear to auscultation. No wheezes rales or rhonchi. CARDIOVASCULAR: S1-S2, regular rate, regular rhythm. Radial pulses 2+, normal. ABDOMEN: Normoactive bowel sounds. Soft, tender left lower pelvic area, no gu arding, no rebound tenderness, and no masses palpated. EXTREMITIES: Normal strength and range of motion, no pitting or edema. No cyanosis. NEUROLOGICAL: Moves all extremities upon command. Strength 5/5 in all extremities. PSYCH: Normal mood, normal affect. SKIN: Warm, dry. No rash, lesions, ulcerations noted. Normal skin turgor. Course - Re-evaluation Re-evalutation: 02/20/19 14:05 Hematology and chemistries are all unremarkable. Urine is showing a moderate amount of blood, but she is at the end of her menstrual cycle. She denies back or flank pain. I have a very low suspicion for a renal stone or pelvic inflam matory disease. I have very low suspicion for a urinary tract infection. 02/20/19 14:42 Patient has a 1.4 cm ovarian cyst. There is no good good blood flow to her ovary. No torsion noted. At this time, the patient will be sent home with instructions on ibuprofen and Tylenol use for her ovarian cyst. She will follow-up with [facility] as needed. Follow-up precautions were given. Verbal discharge instructions were given to the patient. They verbalized understanding. They are stable for discharge. - Vital Signs Vital signs: Temp Pulse Resp BP Pulse Ox 98.3 F 68 16 120/72 99 02/20/19 14:57 02/20/19 14:57 02/20/19 14:57 02/20/19 14:57 02/20/19 14:57 - Laboratory Result Diagrams: 02/20/19 11:30 02/20/19 11:30 Laboratory results interpreted by me: 02/20/19 02/20/19 11:30 11:30 RDW 14.3 H Urine Blood MODERATE H Discharge - Discharge Clinical Impression: Left ovarian cyst Condition: Stable Disposition: HOME, SELF-CARE Additional Instructions: Ovarian Cyst Your examination shows the presence of an ovarian cyst. This is a ball of fluid attached to the ovary. Ovarian cysts in women of child-bearing age are usually innocent. However, the cyst may cause pain when it grows or bursts. An innocent ovarian cyst will usually go away by itself. When the cyst becomes painful, you should rest. Pain medication may be required. Some women find a hot water bottle soothing. The pain usually resolves within one or two days. After menopause, an ovarian cyst may mean a tumor, and requires more aggressive evaluation -- usually surgery is recommended to remove or biopsy the cyst. A very large cyst requires evaluation at any age. Most cysts (even the innocent ones) require follow-up examination. Call the doctor or return at any time if the pain increases significantly, if you become faint, or if you experience vaginal bleeding. Prescriptions: Ibuprofen [Ibu] 600 mg PO Q6HP PRN #30 tablet PRN Reason: Referrals: ALIN,KARINA, PA-C [Primary Care Provider] - Follow up as needed [facility] [Provider Group] - Follow up as needed
--- NOTE | 2019-02-20 14:17 | RADIOLOGY REPORT (SQ) ---
EXAM DESCRIPTION: U/S NON OB PEL TV W/DOPPLER COMPLETED DATE/TIME: 02/20/2019 1:32 pm REASON FOR STUDY: Pelvic pain, history of ovarian torsion COMPARISON: None. TECHNIQUE: Dynamic and static grayscale images acquired of the pelvis via transvaginal approach and recorded on PACS. Additional selected color Doppler and spectral images recorded. LIMITATIONS: None. FINDINGS: UTERUS: Contour normal. No mass. Uterus is 9.2 x 4 x 5 cm in size. No fibroids ENDOMETRIAL STRIPE: No focal or generalized thickening. No masses. Endometrial stripe 4 mm in thickn ess CERVIX: Closed, 2.7 cm in length. Multiple nabothian cysts. RIGHT OVARY AND DOPPLER: Patient gives history that the right ovary is surgically absent. No right o vary is identified. No right adnexal masses or free fluid. LEFT OVARY AND DOPPLER: Normal size, 3.2 x 2 x 1.7 cm in size with a 1.4 cm simple cyst. No worrisom e masses. Normal arterial vascular flow without evidence for torsion. FREE FLUID: None OTHER: No other significant finding. IMPRESSION: Post right oophorectomy. 1.4 cm simple cyst left ovary. No sonographic evidence for left ovarian torsion TECHNICAL DOCUMENTATION: JOB ID: [id number] [employer]- All Rights Reserved Rev-11/09 Reading location - IP/workstation name: [email or web address]
[2019-02-20 14:58] VITALS: BP 120/72
== END 2019-02-20 14:56 | disposition home or self-care (01) ==
LOC: ER 10:16
DX: N83.202 Unspecified ovarian cyst, left side (principal); R10.30 Lower abdominal pain, unspecified; R42 Dizziness and giddiness; F17.200 Nicotine dependence, unspecified, uncomplicated; E11.9 Type 2 diabetes mellitus without complications; Z87.442 Personal history of urinary calculi
CPT/HCPCS: 36415; 76830; 80053; 81001; 81025; 83690; 85025; 93976; 99284

== ENCOUNTER 2019-04-05 01:07 | Emergency (ER) | payer OTHER ==
[2019-04-05] MEDS ORDERED: KETOROLAC TROMETHAMINE 60 MG/2 ML SDV IM ONE (01:16)
--- NOTE | 2019-04-05 01:19 | ER Document Report ---
HPI - HPI Patient complains to provider of: low back right side pain Time Seen by Provider: 04/05/19 01:13 Onset: Last week Onset/Duration: Sudden, Persistent Quality of pain: Achy Context: This 38-year-old female presents emergency department with complaints of right- sided low back pain for little over a week. Reports she is taking Motrin Tylenol without relief of symptoms. Denies urinary bowel incontinence or retention. Denies trauma. Reports she works at [employer] and it hurts when she is up and down all day long. Came in tonight because she could not sleep. Last took Motrin 1800. Associated Symptoms: None Exacerbated by: Movement Relieved by: Denies Similar symptoms previously: Yes Recently seen / treated by doctor: No - REPRODUCTIVE Reproductive: DENIES: : Past Medical History - General Information source: Patient Last Menstrual Period: February patient denies reports control and no sex - Social History Smoking Status: Current Every Day Smoker Cigarette use (# per day): Yes Frequency of alcohol use: None Drug Abuse: None Occupation: [employer] Family History: DM, Hypertension Patient has suicidal ideation: No Patient has homicidal ideation: No Endocrine Medical History: Reports: Hx Diabetes Mellitus Type 2 Renal/ Medical History: Reports: Hx Kidney Stones - Dx'ed with x-ray, Hx Ovarian Cysts - Right oopherectomy 2008. Denies: Hx Peritoneal Dialysis, Hx Pelvic Inflammatory Disease Malignancy Medical History: Denies: Hx Breast Cancer, Hx Cervical Cancer, Hx Ovarian Cancer GI Medical History: Reports: Hx Gastroesophageal Reflux Disease - during only. Denies: Hx Hiatal Hernia, Hx Ulcer Musculoskeletal Medical History: Reports Hx Musculoskeletal Trauma Psychiatric Medical History: Reports: Hx Depression - no meds Denies: Hx Bipolar Disorder, Hx Post Traumatic Stress Disorder, Hx Schizophrenia Traumatic Medical History: Reports: Hx Fractures - finger as child Infectious Medical History: Denies: Hx HIV Past Surgical History: Reports: Hx Breast Surgery - reduction, Hx Section - x3, Hx Gynecologic Surgery - ovary removed - Immunizations Immunizations up to date: Yes Hx Diphtheria, Pertussis, Tetanus Vaccination: Yes - 08/2013 Vertical Provider Document - CONSTITUTIONAL Agree With Documented VS: Yes Exam Limitations: No Limitations General Appearance: WD/WN, No Apparent Distress - INFECTION CONTROL TRAVEL OUTSIDE OF THE [place] IN LAST 30 DAYS: No - HEENT HEENT: Atraumatic, Normocephalic - NECK Neck: Supple - RESPIRATORY Respiratory: No Respiratory Distress - CARDIOVASCULAR Cardiovascular: Regular Rate - BACK Back: Normal Inspection - No obvious deformity good distal movement and sensation no vertebral tenderness complains of right-sided low back muscular pain. - MUSCULOSKELETAL/EXTREMETIES Musculoskeletal/Extremeties: MAEW, FROM, Non-Tender - NEURO Level of Consciousness: Awake, Alert, Appropriate - DERM Integumentary: Warm, Dry Adult Front & Back Diagram: 1 - Patient reports area tender to palpation. Denies radiation down her right leg. Good distal movement and sensation Course - Re-evaluation Re-evalutation: 04/05/19 01:31 38-year-old female with complaints of right lower back muscular pain started approximately 1 week ago. Denies trauma. Denies fever vomiting diarrhea. Denies urinary bowel incontinence or retention. She was instructed on Toradol and muscle relaxer. She was also instructed on red flags of back pain. She was instructed to return to the emergency department should she become incontinent of urine or bowel or have retention. Or worsening pain. She verbalized understanding to all instructions. Low suspicion for any meningitis, fracture, expanding/ruptured AAA, cauda equina syndrome, epidural mass lesion/abscess, herniated disc causing severe spinal stenosis, or other systemic infection at this time. Patient is aware that this condition can change from initial presentation and that she needs monitor symptoms closely for any acute changes. Dictation of this chart was performed using voice recognition software; therefore, there may be some unintended grammatical errors. Discharge - Discharge Clinical Impression: Low back pain Qualifiers: Chronicity: unspecified Back pain laterality: right Sciatica presence: without sciatica Qualified Code(s): M54.5 - Low back pain Condition: Stable Disposition: HOME, SELF-CARE Instructions: Low Back Pain ([facility]), Muscle Relaxers ([facility]), Muscle Strain ([facility]) Additional Instructions: *You have been evaluated for back pain *Take medication as prescribed *Rest/Ice packs as indicated *Follow up with your primary care provider as scheduled *Return to ED for worsening condition, changes, needs Prescriptions: Cyclobenzaprine HCl [Flexeril 10 Mg Tablet] 10 mg PO TID #15 tablet Referrals: KARINA OGDEN PA-C [Primary Care Provider] - 04/29/19
[2019-04-05 01:24] VITALS: BP 111/75
== END 2019-04-05 01:31 | disposition home or self-care (01) ==
LOC: ER 01:07
DX: M54.5 Low back pain (principal); F17.210 Nicotine dependence, cigarettes, uncomplicated; E11.9 Type 2 diabetes mellitus without complications
CPT/HCPCS: 96372; 99283; J1885

== ENCOUNTER 2020-06-27 12:06 | Emergency (ER) | payer BC, OTHER ==
[2020-06-27 12:18] VITALS: BP 133/69
--- NOTE | 2020-06-27 13:36 | ER Document Report ---
ED General - General Chief Complaint: Shoulder Pain Stated Complaint: SHOULDER PAIN Primary Care Provider: KARINA OGDEN PA-C [Primary Care Provider] - Follow up as needed OLVIN CARDENAS JR, DO [ACTIVE PROVISIONAL STAFF] - Follow up as needed TRAVEL OUTSIDE OF THE [place] IN LAST 30 DAYS: No - HPI Notes: Chief Complaint: left shoulder pain Historian: History obtained from patient HPI: This is a 39-year-old female presents to the ER complaint of left shoulder pain. Denies injury or trauma. Shoulder pain is constant worse with movement and nonradiating. No treatments tried. No history of shoulder surgery or neck surgery. Denies chest pain, shortness of breath, abdominal pain, nausea vomiting, fever. ROS: Constitutional: no fevers. HEENT: no RODRIGUES, sore throat, or vision changes. CV: no chest pain or palpitations. Resp: no cough or SOB. GI: no abdominal pain, or n/v/d. : no dysuria, hematuria, or incont. MSK: left shoulder pain Skin: no rashes or itching. Neuro: no seizures, weakness, numbness, or confusion. Hematological: no ecchymosis or easy bleeding. Endocrine: no polyuria/polydipsia, no heat/cold intolerance. Psych: no SI/HI, AH/VH or memory loss. PMHx: Reviewed and agree as charted by RN. PSHx: Reviewed and agree as charted by RN. SOCHx: Reviewed and agree as charted by RN. FHX: No significant familial comorbid conditions directly related to patient complaint Current Medications: Reviewed and agree with the patient medications as charted by the RN. Allergies: Reviewed and agree with the listed allergies as charted by the RN Physical Exam: Vitals: Reviewed in chart as documented by RN. General: Alert and in NAD. Head: Normocephalic; atraumatic Eyes: PERRLA, Conjunctivae clear sclerae non-icteric bilat ENT: no soft palate swelling or uvular deviation Neck: trachea midline, no unilateral swelling/tenderness/lymphadenopathy CV: RRR, no M/R/G; symmetric distal pulses Resp: respirations even and unlabored, CTA bilat. GI: abd soft and nondistended. NTTP. normal BS. no masses/HSM. no CVAT bilat MSK: LUE- left shoulder- tender to subacromial and trapezius area. no erythema/swelling/deformity. no shoulder joint tenderness/deformity. FROM of shoulder w/ inc pain above head. neg drop arm. from of elbow/wrist/digits. radial pulse 2+. cap refill <3 sec. sensory intact distally. Skin: warm, moist, good turgor. no rash/lesions Neuro: Alert and oriented X 4. following CN 2-12 intact. no unilateral weakness/numbness Psych: No SI/HI or AH/VH. Medical Decision-Making: Medical Decision-making/Differential Diagnosis: Consider various etiologies including but not limited to skin/soft tissue structure injury, MSK injury, strain/sprain, fracture, dislocation, bursitis, tendonitis, contusion, ect Plan- shoulder XR. This course of action was discussed with the patient and/or family. They were amenable to this, verbalized understanding, and were without further questions. - Related Data Allergies/Adverse Reactions: No Known Allergies Allergy (Verified 06/27/20 12:30) Home Medications: topomax. sertraline Past Medical History - Social History Smoking Status: Current Every Day Smoker Chew tobacco use (# tins/day): No Frequency of alcohol use: Occasional Drug Abuse: None Family History: DM, Hypertension Endocrine Medical History: Reports: Hx Diabetes Mellitus Type 2 Renal/ Medical History: Reports: Hx Kidney Stones - Dx'ed with x-ray, Hx Ovarian Cysts - Right oopherectomy 2008. Denies: Hx Peritoneal Dialysis, Hx P elvic Inflammatory Disease Malignancy Medical History: Denies: Hx Breast Cancer, Hx Cervical Cancer, Hx Ovarian Cancer GI Medical History: Reports: Hx Gastroesophageal Reflux Disease - during only. Denies: Hx Hiatal Hernia, Hx Ulcer Musculoskeletal Medical History: Reports Hx Musculoskeletal Trauma Psychiatric Medical History: Reports: Hx Depression - no meds Denies: Hx Bipolar Disorder, Hx Post Traumatic Stress Disorder, Hx Schizophrenia Traumatic Medical History: Reports: Hx Fractures - finger as child Infectious Medical History: Denies: Hx HIV Past Surgical History: Reports: Hx Breast Surgery - reduction, Hx Section - x3, Hx Gynecologic Surgery - ovary removed - Immunizations Immunizations up to date: Yes Hx Diphtheria, Pertussis, Tetanus Vaccination: Yes - 08/2013 Physical Exam - Vital signs Vitals: Temp Pulse Resp BP Pulse Ox 98.1 F 56 L 16 133/69 H 100 01/03/21 12:16 06/27/20 12:16 06/27/20 12:16 06/27/20 12:16 06/27/20 12:16 Course - Re-evaluation Re-evalutation: 06/27/20 13:34 XR reviewed- no acute findings. I suspect pt has subacromial bursitis vs tendonitis vs sprain/strain. will treat w/ nsaids, steroid burst, muscle relaxers. ROM encrouaged. ortho referral for f/u given . return factors discussed. - Vital Signs Vital signs: Temp Pulse Resp BP Pulse Ox 98.1 F 56 L 16 133/69 H 100 06/27/20 12:16 06/27/20 12:16 06/27/20 12:16 06/27/20 12:16 06/27/20 12:16 - Laboratory Results Critical Laboratory Results Reviewed: No Critical Results - Radiology Results Critical Radiology Results Reviewed: No Critical Results Discharge - Discharge Clinical Impression: Left shoulder pain Qualifiers: Chronicity: acute Qualified Code(s): M25.512 - Pain in left shoulder Condition: Stable Disposition: HOME, SELF-CARE Instructions: Bursitis ([facility]), Shoulder Injury ([facility]) Additional Instructions: take medications as prescribed. rest and ice shoulder. do range of motion of shoulder multiple times a day. call and schedule a follow up appointment with orthopedics. follow printed instructions. return to the ER if your condition worsens. Prescriptions: Prednisone [Deltasone 20 mg Tablet] 3 tab PO DAILY 5 Days #15 tablet Cyclobenzaprine HCl [Flexeril 10 mg Tablet] 10 mg PO BIDP PRN #15 tablet PRN Reason: Ibuprofen [Motrin 600 Mg Tablet] 600 mg PO TIDP PRN #15 tablet PRN Reason: Referrals: KARINA OGDEN PA-C [Primary Care Provider] - Follow up as needed OLVIN CARDENAS JR, DO [ACTIVE PROVISIONAL STAFF] - Follow up as needed
--- NOTE | 2020-06-27 14:09 | RADIOLOGY REPORT (SQ) ---
EXAM DESCRIPTION: SHOULDER LEFT 2 OR MORE VIEWS IMAGES COMPLETED DATE/TIME: 06/27/2020 1:23 pm REASON FOR STUDY: atraumatic left shoulder pain COMPARISON: None. NUMBER OF VIEWS: Three view. TECHNIQUE: Internal rotation, external rotation, and Y view images acquired of the left shoulder. LIMITATIONS: None. FINDINGS: MINERALIZATION: Normal. BONES: No acute fracture or dislocation. Osteochondroma measuring about 10 x 14 mm lateral aspect of the proximal humeral diaphysis. GLENOHUMERAL JOINT: No significant findings. ACROMIOCLAVICULAR JOINT: No large osteophytes. SOFT TISSUES: No calcifications. VISUALIZED RIBS, SPINE, AND LUNG: No other significant finding. OTHER: No other significant finding. IMPRESSION: Osteochondroma proximal humerus. No acute findings. TECHNICAL DOCUMENTATION: JOB ID: [id number] [employer]- All Rights Reserved Reading location - IP/workstation name: [email or web address]
== END 2020-06-27 14:22 | disposition home or self-care (01) ==
LOC: ER 12:06
DX: M25.512 Pain in left shoulder (principal); F17.200 Nicotine dependence, unspecified, uncomplicated; E11.9 Type 2 diabetes mellitus without complications; Z87.442 Personal history of urinary calculi
CPT/HCPCS: 99283